=== PATIENT | male | born 1935 | race Caucasian/White ===

== ENCOUNTER → 2017-02-18 | Outpatient (CLI) | payer MEDICARE ==
[~2017-02-18] MED LIST: ADVAIR 250-501 EAC1 INH; ADVAIR 250-501 EACH IH; ALBUTEROL 0.5ML INH; ALBUTEROL MININEB INH; AMLODIPINE-BEN1 EAC5 PO; AMLODIPINE-BENA1 CAP PO; AMLODIPINE-OLM1 EAC3 PO; ASPIRIN EC81 M1 PO; B-COMPLEX 1000.4 MG; CLOPIDOGREL75 MG PO; COMBIVENT MININEB; FERROUS SULFAT325 MG PO; K-DUR20 ME1 PO; LASIX PO; LEVAQUIN750 MG PO; LIPITOR20 MG PO; NEXIUM PO; NITROGLYGERIN0.4 MG SL; OMNICEF300 MG PO; OXYGEN; PANTOPRAZOLE SO40 MG PO; SPIRIVA18 MCG INH; SPIRIVA18 MCG PO; VITAMIN C250 MG
== END | disposition home or self-care (01) ==
LOC: CECH 13:03
DX: R06.00 Dyspnea, unspecified (principal); J44.9 Chronic obstructive pulmonary disease, unspecified; I51.7 Cardiomegaly; I36.1 Nonrheumatic tricuspid (valve) insufficiency
CPT/HCPCS: 93306

== ENCOUNTER 2017-04-22 12:30 | Inpatient (IN) | payer MEDICARE ==
--- NOTE | ~2017-04-22 | DS ---
Unit #: [id number] #: [id number] Patient: DORA ALCIIA [id number] [place] [id number] [facility]. [place], [place] [address] [id number] I MR#: [id number] NAME: DORA ALICIA. ROOM: 547 Age: 82 Sex: M Admission Date: 04/22/2017 : 1935 Discharge Date: 04/25/2017 Attending Physician: Prakash Pacheco M.D. Primary Care Physician: Jasson Donnelly M.D. DISCHARGE SUMMARY FINAL DIAGNOSES 1. Acute on chronic congestive heart failure. 2. Acute on chronic hypoxemic respiratory failure. 3. 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 4. Pulmonary hypertension. 5. Chronic obstructive pulmonary disease. 6. Aortic regurgitation. CONSULTANTS Dr. Cummings. DIAGNOSTIC DATA IMAGING: CT chest. HOSPITAL COURSE MR. Alicia is an 82-year-old followed by me with chronic obstructive pulmonary disease. I am not certain what his stage is, but he is maintained on 3 liters of nasal cannula. He came to the office with increasing shortness of air and saturations were 83% on 3 liters, particularly with exertion. He had extremity edema and he had erythema of his legs. On x-ray, it looked like he had a right pleural effusion that was climbing up the wall of the chest. He was admitted and started on IV diuretics. I asked Misti Farfan and Zoila to see him. He was seen and started on increasing doses of diuretics. He received a little bit of IV steroids, but was kept to a minimum. He had an echocardiogram that was already known and this echocardiogram had revealed mild to moderate aortic regurgitation, elevated RVSP of 51, left atrium mildly dilated and some evidence of grade 1 diastolic dysfunction. He improved with diuresis and he had lower extremity Doppler because of the leg swelling, which revealed no definite DVT. He has gotten to the point where he is more or less not desaturating with walking. His last BMP was today. BUN was 32, which is higher than it was, but that is expected. Creatinine was 1.1, which is also higher than it was, but when he was admitted it was 0.8, so I think that is fine. Bicarb was 37. His white blood cell count was 6,000, hemoglobin 13, hematocrit 41 and platelets 147. He will likely need a right heart catheterization and I believe they are thinking of doing a left heart catheterization. DISCHARGE MEDICATIONS 1. Albuterol mini-nebs p.r.n. or albuterol inhaler q.i.d. p.r.n. 2. Advair 250/50 one puff b.i.d. 3. Omnicef 300 mg b.i.d. 4. Amlodipine/Benazepril 10/40 daily. 5. Lasix 40 mg p.o. b.i.d. Unit #: [id number] #: [id number] Patient: DORA ALICIA 6. Atorvastatin 20 mg p.o. daily. 7. Aspirin 81 mg p.o. daily. 8. Protonix 40 mg p.o. daily. 9. Potassium chloride 20 mEq p.o. daily. 10. Vitamin B complex. 11. He will continue his 3 liters nasal cannula at home. FOLLOWUP 1. He is to follow up with me in about two weeks. 2. He is to follow up with Dr. Cummings in two to four weeks. They will set up outpatient heart catheterization. Dictated by... Tc Leos/esa TD: 04/26/2017 07:05 JOB #: [id number] CC: Tc Leos M.D. DISCHARGE SUMMARY Page 1 of 1 X Prakash Pacheco MD DISCHARGE SUMMARY
--- NOTE | ~2017-04-22 | HP ---
Unit #: [id number] #: [id number] Patient: DORA ALICIA [id number] [address] [place], [place] [address] [id number] I MR#: [id number] NAME: DORA ALICIA. ROOM: 547 Age: 82 Sex: M Admission Date: 04/22/2017 : 1935 Attending Physician: Prakash Pacheco M.D. Primary Care Physician: Jasson Donnelly M.D. HISTORY AND PHYSICAL HISTORY OF PRESENT ILLNESS Mr. Alicia is an 82-year-old male with a history of COPD and prior asbestos exposure. He presented to the office with increasing shortness of air and desaturation on his 3 liters. He normally uses 3 liters nasal cannula. However, he has been noticing that saturations are dropping down in the 80s. He complains of bilateral leg swelling. He complains of maybe minimal cough and no chest pain. He has a history of COPD and PFTs done 07/23/2016 revealed an FEV1 of 0.92 39% of predicted, FVC 0.95 31% of predicted, ratio of the two is 96% with a 16% improvement post bronchodilator in the FVC. Now these PFTs are restrictive. He had a recent echo with some suggestion of pulmonary hypertension. Past medical history is otherwise significant for pleural effusions. He actually had a thoracentesis back in May of 2013 with protein of 2.9, LDH of 74, 62% lymphocytes. At that time, cytology was negative for malignancy. OTHER PAST MEDICAL HISTORY Significant for: 1. Hyperlipidemia. 2. Hypertension. HOME MEDICATIONS Included: 1. Aspirin 81 mg p.o. daily. 2. Advair 250/50 one puff b.i.d. 3. Atorvastatin 20 mg p.o. daily. 4. Fluad which actually was his flu vaccine given back in September. 5. Amlodipine/benazepril 10/40 daily. 6. Proventil MDI q.i.d. 7. Combivent p.r.n. ALLERGIES Penicillin. SOCIAL HISTORY He did previously smoke but he quit smoking 8-10 years ago. FAMILY HISTORY Significant for two sisters and maybe two brothers with COPD. REVIEW OF SYSTEMS He has sinus issues. He has leg swelling, however, he was unaware of any weight gain or weight loss. History of cataracts. History of sinus Unit #: [id number] #: [id number] Patient: DORA ALICIA congestion. No changes in bowel movements. No gastroesophageal reflux disease or nausea. No history of kidney issues. No joint pains, no skin rashes. No coping problems. He has had some problems with sexual function. History of burning in his feet and numbness in his feet. He does occasionally snore but not too much. All other systems are negative except as mentioned. PHYSICAL EXAMINATION VITAL SIGNS: Temperature 98.6, pulse 77, respirations 16, blood pressure 127/55, saturation was running 96% on 3 liters. GENERAL: He presents as an older male in no acute distress. NECK: Without adenopathy. It is a bit thick. LUNGS: Evaluation of his lungs reveals his breathing is not labored. He has inspiratory crackles in the bases bilaterally. HEART: Regular. ABDOMEN: Soft, nontender. Bowel sounds are present. EXTREMITIES: With 2+ edema. NEUROLOGIC: He is awake and alert. DIAGNOSTIC STUDIES LABORATORY: Serum chemistries significant for BUN 13, creatinine 0.8, bicarb was elevated at 33. BNP was only 60. Procalcitonin was less than 0.05. White blood cell count was 6.7, hemoglobin 13.3, hematocrit 42.1, platelets 149,000. IMAGING: Chest x-ray in my office revealed what looked like a right pleural effusion. It seemed to be coming up the chest wall. CAT scan of the lung was done and viewed by me. He does indeed have pleural thickening/pleural effusion but I thought it was actually bilaterally. Not only that, I thought that the amount of fluid component was very minimal. The radiologist thought that the fluid was probably chronic and multiloculated and the size has not really changed since July 2013. I thought there was a little bit of calcification in the left pleura. He had some increased interstitial markings in the upper molina. These increased interstitial markings may actually be worse. CARDIOVASCULAR: Echo was done on 02/18/2017. In my opinion, significant for impaired relaxation. Grade 1 diastolic dysfunction. Ejection fraction 55% to 60%. Mitral valve trace regurgitation. Aortic valve rhbi-dr-zxmspbdu aortic regurgitation, no stenosis. RVSP was 51. Left atrium mildly dilated. Right atrium mildly enlarged. Right ventricle suboptimal visualization but mildly enlarged. IMPRESSION 1. Usnll-io-hyxubkm diastolic congestive heart failure. 2. Eyfkx-va-ybsyahd hypoxemic respiratory failure. 3. Bilateral pleural effusion/thickening probably due to asbestosis. 4. Pulmonary hypertension which may be in part group 2. 5. Chronic obstructive pulmonary disease. PLAN 1. I would like to diurese him with IV Lasix. 2. I would like to give him brief IV Solu-Medrol. 3. I started him on IV antibiotic but we will back off quickly. 4. I think he would benefit from a right heart catheterization. Unit #: [id number] #: [id number] Patient: DORA ALICIA Dictated by Tc Leos/yovany TD: 04/23/2017 19:48 JOB #: [id number] HISTORY AND PHYSICAL Page 1 of 1 X Prakash Pacheco MD X HISTORY AND PHYSICAL
--- NOTE | ~2017-04-22 | CT57 ---
[facility] A Service of [facility] RADIOLOGY TEXT RESULTS PATIENT: DORA VENEGAS LOCATION: [facility] 54-01 : 37 UNIT #: [id number] AGE: [address]: Prakash Pacheco MD SEX: M ORDER DR: [id number] [facility] [address] [facility]. [place], [place] [address] [id number] I MR#: [id number] Acc #: [id number] NAME: DORA VENEGAS. : 1935 SEX: M STUDY DATE/TIME: 04/22/2017 17:00 UNIT: [facility] ROOM: [facility] STUDY DESCRIPTION: CT Chest Wo Cont Attending Physician: Prakash Pacheco M.D. Ordering Physician: Prakash Pacheco M.D. Primary Care Physician: Jasson Donnelly M.D. MEDICAL IMAGING REPORT This report is preliminary unless electronic signature is present EXAM Chest CT without contrast. HISTORY Shortness of breath and dyspnea with respiratory failure over the last 2 days. Chronic emphysema. Evaluate right pleural effusion. COMPARISON Comparison from 08/18/13. TECHNIQUE Axial images were obtained without contrast and evaluated at lung and mediastinal windows. This CT exam was performed with one or more of the following radiation dose reduction techniques: automatic exposure control, adjustment of mA and/or kV according to patient size, and iterative reconstruction. FINDINGS Chest images at mediastinal window show no enlarged mediastinal or hilar lymph nodes. There is a small right pleural effusion. There appear be some strands of tissue within the fluid suggesting it is chronic and probably multiloculated. The size of the effusion is unchanged from a previous scan from 08/18/13. There is a trace pleural effusion on the left that is new since the previous scan. No pericardial fluid is seen. Lung window imaging shows mildly prominent interstitial markings in the upper lung molina. There is diffuse pleural thickening in the right hemithorax. Interstitial markings have increased since the previous scan in 2012. There is also chronic volume loss and bronchial wall thickening in both lower lobes, right worse than left. This shows slight worsening since 2012. [facility] A Service of [facility] RADIOLOGY TEXT RESULTS PATIENT: DORA VENEGAS LOCATION: [facility] [id number] : 37 UNIT #: [id number] AGE: [address]: Prakash Pacheco MD SEX: M ORDER DR: IMPRESSION 1. Chronic right pleural effusion unchanged in volume since the previous examination. There is evidence of diffuse pleural thickening and fibrosis as well in the right hemithorax showing slight worsening since the 2013 study. 2. Trace left pleural effusion that is new. 3. Chronic volume loss of both lung bases right worse than left. Right basilar interstitial infiltrates are slightly worse since the previous scan. No evidence of adenopathy or pericardial fluid. No definite etiology for acute onset of respiratory failure and shortness of breath identified. Dictated by... Carlos Gutierrez M.D. THIS IS AN ELECTRONICALLY VERIFIED REPORT Carlos Gutierrez M.D. at 04/23/2017 4:29 PM AQUILINO/rossana TD: 04/22/2017 19:50 JOB #: [id number] MEDICAL IMAGING REPORT Page 1 of 1 COPY
--- NOTE | ~2017-04-22 | CR63 ---
[facility] A Service of [facility] RADIOLOGY TEXT RESULTS PATIENT: DORA VENEGAS LOCATION: [place] [address]- : 37 UNIT #: [id number] AGE: [address]: Prakash Pacheco MD SEX: M ORDER DR: [id number] [facility] [address] [facility]. [place], [place] [address] [id number] I MR#: [id number] Acc #: [id number] NAME: DORA VENEGAS. : 1935 SEX: M STUDY DATE/TIME: 04/23/2017 12:25 UNIT: [facility] ROOM: [facility] STUDY DESCRIPTION: CR Chest 2 View Attending Physician: Prakash Pacheco M.D. Ordering Physician: Lucius Cummings M.D. Primary Care Physician: Jasson Donnelly M.D. MEDICAL IMAGING REPORT This report is preliminary unless electronic signature is present EXAM Two-view chest 04/23/2017 HISTORY Shortness of air x 1 week. Shortness of air and congestion. Previous smoker 10 year duration. TECHNIQUE PA and lateral radiographs of the chest are presented. COMPARISON STUDIES CT examination 04/22/2017. Chest radiograph 09/24/2015. FINDINGS Multilevel degenerative change in the spine. Multilevel bridging thoracic spine osteophytes and calcifications along the anterior longitudinal ligament. There is no acute-appearing bony abnormality. There is a stable mild cardiac enlargement. Mild pulmonary vascular prominence. Correlate with any clinical indications of vascular congestion. There are some linear densities at the bilateral lung bases, favored to reflect components of atelectasis and scarring. There is no dense airspace disease. Chronic pleural thickening versus loculated effusion, right hemithorax. No change from August 2015 chest radiograph. There is no pneumothorax. Pulmonary parenchymal findings do not appear significantly changed from CT examination 04/22/2017. Dictated by... Stewart Kate M.D. THIS IS AN ELECTRONICALLY VERIFIED REPORT Stewart Kate M.D. at 04/27/2017 4:57 PM [facility] A Service of [facility] RADIOLOGY TEXT RESULTS PATIENT: DORA VENEGAS LOCATION: [facility] 547-01 : 37 UNIT #: [id number] AGE: [address]: Prakash Pacheco MD SEX: M ORDER DR: JANN/wyatt TD: 04/23/2017 16:22 JOB #: [id number] MEDICAL IMAGING REPORT Page 1 of 1 COPY
--- NOTE | ~2017-04-22 | CO ---
Unit #: [id number] #: [id number] Patient: DORA VENEGAS [id number] [address] [place], [place] [address] [id number] I MR#: [id number] NAME: DORA VENEGAS ROOM: 547 Age: 82 Sex: M Admission Date: 04/22/2017 : 1935 Attending Physician: Prakash Pacheco M.D. Primary Care Physician: Jasson Donnelly M.D. Consultation Date: 04/23/2017 CONSULTATION REPORT REASON FOR CONSULTATION Diastolic CHF. 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 He had an echo in January of 2017, which showed an EF of 55% to 60%, mild LVH, grade 1 diastolic dysfunction, mild TR and RVSP of 51 mmHg. Additional past medical history includes chronic diastolic CHF, chronic hypoxic respiratory failure requiring 3 L nasal cannula, COPD, hypertension, hyperlipidemia, CVA 35 years ago, no residual after a right carotid endarterectomy. The patient is a reformed smoker. He smoked for approximately 60+ years, approximately two and a half packs per day but quit ten years ago. The patient reports that he has been on oxygen for the past seven to eight years. The patient reports that for the past one to two weeks that he has been having progressive shortness of air and bilateral lower extremity swelling. He feels very winded with activity. He has noted decline in his activity as well. He denies any chest pain. He also denies any history of myocardial infarction or cardiac catheterization. The patient does note that he recently had a 2D echocardiogram and follows with Dr. Pacheco. The patient's EKG is abnormal and does show Q waves in the inferior leads. His laboratory results have been relatively unremarkable. He did have a CT scan of his chest which showed a chronic right pleural effusion that is unchanged from previous examination. He does have evidence of diffuse pleural thickening and fibrosis in the right hemithorax showing slight worsening since 2012. He did have a new left pleural effusion. Chronic volume loss of both lung bases, right worse than left. No evidence of adenopathy or pericardial fluid. PAST MEDICAL HISTORY 1. 2D echocardiogram from February 18, 2017, shows an EF of 55% to 60%, mild LVH, grade 1 diastolic dysfunction, mild TR with an RVSP of 51 mmHg. 2. Chronic diastolic CHF. 3. Chronic hypoxic respiratory failure requiring 2 to 3 L nasal cannula. 4. COPD. 5. Hypertension. 6. Hyperlipidemia. 7. 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 8. Coronary artery disease, status post carotid endarterectomy 35 years ago. 9. GERD. 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 Unit #: [id number] #: [id number] Patient: DORA VENEGAS PAST SURGICAL HISTORY Right carotid endarterectomy. ALLERGIES Penicillin. HOME MEDICATIONS 1. Lipitor 20 mg p.o. daily. 2. Vitamin B12, one tab p.o. daily. 3. Advair 250/50, one puff inhalation b.i.d. 4. Amlodipine/benazepril 50/20 mg, one tab p.o. b.i.d. 5. Proventil two puffs inhalation four times daily. 6. Aspirin 81 mg p.o. daily. 7. Combivent two puffs inhalation four times daily p.r.n. shortness of breath. 8. Protonix 40 mg p.o. daily. 9. Amlodipine/olmesartan 10/40, one tab p.o. daily. FAMILY HISTORY Denies any cardiovascular history. The patient does have a son who from oral cancer. SOCIAL HISTORY The patient is a reformed smoker. He started smoking at the age of 14 or 15 and smoked until the age of 72. He smoked approximately two and a half packs of cigarettes per day. The patient was placed on chronic oxygen approximately seven to eight years ago, per family report. He socially drinks alcohol, denies any illicit drug use. He lives with his who is a diabetic but otherwise is in relatively good health. REVIEW OF SYSTEMS A ten point review of systems has been done and is otherwise negative unless indicated in the HPI. Please note - patient has denied any events of chest pain. He only endorses shortness of breath and bilateral lower extremity swelling. PHYSICAL EXAMINATION GENERAL: The patient is awake and alert, in no acute distress. VITAL SIGNS: Temperature 98, heart rate 77, respirations 21, blood pressure 121/61. He is oxygenating 96% on 3 L nasal cannula. HEENT: Head is atraumatic, normocephalic. Pupils are equal, round and reactive. Extraocular movements are intact. No discharge from ears or nares. NECK: Supple. Trachea is midline. No lymphadenopathy or thyromegaly is appreciated. Positive JVD. LUNGS: Diminished bilaterally with crackles in the right lung. HEART: Regular rate and rhythm. No murmurs, rubs or gallops appreciated. ABDOMEN: Soft, nontender, distended. Bowel sounds are positive in all four quadrants. No hepatosplenomegaly is appreciated. SKIN: Appears to be warm, dry and intact without any unusual rashes or lesions. EXTREMITIES: No clubbing or cyanosis. The patient has +2 bilateral lower extremity edema. NEUROLOGICAL: The patient is alert and oriented x4. He is somewhat forgetful but he is pleasant and conversant. Cranial nerves II-XII appear to be intact. Unit #: [id number] #: [id number] Patient: DORA VENEGAS DIAGNOSTIC STUDIES CARDIOVASCULAR: EKG shows normal sinus rhythm with Q waves in the inferior leads. LABORATORY: White blood cells 6.7, hemoglobin 13.3, hematocrit 42.1, platelets 149, sodium 143, potassium 4.4, chloride 104, CO2 33, BUN 13, creatinine 0.8, glucose 97. IMAGING: CT of the chest shows chronic right pleural effusion and new left pleural effusion. ASSESSMENT 1. Severe to moderate pulmonary hypertension with right systolic ventricular pressure of 51 mmHg. 2. Severe chronic obstructive pulmonary disease. 3. Acute on chronic hypoxic respiratory failure. 4. 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 5. Obstructive sleep apnea. 6. History of carotid disease, status post right carotid endarterectomy. 7. Cerebrovascular accident 35 years ago. 8. Hypertension. 9. Hyperlipidemia. 10. Obesity with a body mass index greater than 30. PLAN 1. At this time, will start the patient on Lasix 40 mg IV b.i.d. Will plan to check a BP, mag, TSH and lipid panel in the morning. Trend troponin q.6 hours x2. A bilateral lower extremity venous Doppler has been ordered today regarding patient's lower extremity swelling. Will start the patient on strict I's and O's with 1800 mL fluid restriction and daily weights. Will obtain an EKG now. Also, will check a chest x-ray PA and lateral today. 2. At this time, will continue to diurese the patient. The patient may need a cardiac catheterization in the future, possibly on Wednesday. Dictated by... Roxie Centeno A.P.R.N. for Lucius Cummings M.D. AM/jeffrey TD: 04/23/2017 13:07 JOB #: [id number] CONSULTATION REPORT Page 1 of 1 X Roxie Centeno APRN X CONSULTATION REPORT
--- NOTE | ~2017-04-22 | CR63 ---
[facility] A Service of [facility] RADIOLOGY TEXT RESULTS PATIENT: DORA VENEGAS LOCATION: [place] [address] : 37 UNIT #: [id number] AGE: [address]: Prakash Pacheco MD SEX: M ORDER DR: [id number] [facility] [address]. [place], [place] [address] [id number] I MR#: [id number] Acc #: [id number] NAME: DORA VENEGAS : 1935 SEX: M STUDY DATE/TIME: 04/25/2017 8:51 UNIT: [facility] ROOM: [facility] STUDY DESCRIPTION: CR Chest 2 View Attending Physician: Prakash Pacheco M.D. Ordering Physician: Avani Clark M.D. Primary Care Physician: Jasson Donnelly M.D. MEDICAL IMAGING REPORT This report is preliminary unless electronic signature is present EXAM PA and lateral chest INDICATIONS Shortness of breath for a week. COMPARISON 04/23/2017 FINDINGS The patient is rotated. There is a new density in the right base which may represent atelectasis or infiltrate. However it may be artifactual due to differences in patient positioning. No corresponding abnormality is seen on the lateral view. Heart size stable. Degenerative changes thoracic spine. IMPRESSION Questionable new atelectasis or infiltrate in the right base although this could be due to artifact from differences in patient rotation and positioning. Dictated by... Francisco Hilario M.D. THIS IS AN ELECTRONICALLY VERIFIED REPORT Francisco Hilario M.D. at 04/26/2017 12:34 PM Monica TD: 04/25/2017 10:41 JOB #: [id number] MEDICAL IMAGING REPORT Page 1 of 1 COPY
--- NOTE | ~2017-04-22 | EKG ---
PATIENT: DORA VENEGAS UNIT #: [id number] Ventricular Rate: 74 BPM Atrial Rate: 74 BPM P-R Interval: 132 ms QRS Duration: 92 ms Q-T Interval: 364 ms QTC Calculation(Bezet): 404 ms P [place]: 73 degrees Calculated R [place]: 30 degrees Calculated T [place]: 116 degrees Diagnosis Line: Normal sinus rhythm Diagnosis Line: Nonspecific T wave abnormality Diagnosis Line: Abnormal ECG Diagnosis Line: When compared with ECG of 21-MAR-2012 16:59, Diagnosis Line: Nonspecific T wave abnormality no longer evident Diagnosis Line: in Inferior leads Diagnosis Line: Confirmed by ALESSANDRO TAYLOR MD ([id number]) on Diagnosis Line: 04/27/2017 5:14:04 PM INTERPRETING MD: RADHA
--- NOTE | ~2017-04-22 | US84 ---
[id number] [facility] [address] [facility]. [place], [place] [address] [id number] I MR#: [id number] Acc #: [id number] NAME: DORA VENEGAS : 1935 SEX: M STUDY DATE/TIME: 04/23/2017 12:40 UNIT: C5B ROOM: 547 STUDY DESCRIPTION: US LE Veins Complete Price Stdy Attending Physician: Prakash Pacheco M.D. Ordering Physician: Roxie Centeno A.P.R.N. Primary Care Physician: Jasson Donnelly M.D. MEDICAL IMAGING REPORT This report is preliminary unless electronic signature is present EXAM Bilateral lower extremity venous duplex ultrasound, 04/23/17. HISTORY 82-year-old male with bilateral lower extremity edema and swelling for 1 week. COMPARISON None. FINDINGS Real-time becerra-scale, color Doppler, and spectral Doppler analysis of the bilateral lower extremity deep venous systems demonstrates normal venous waveforms with normal compressibility and augmentation throughout. No evidence of bilateral lower extremity deep venous thrombosis. IMPRESSION Negative for bilateral lower extremity DVT. Dictated by... José Denis M.D. THIS IS AN ELECTRONICALLY VERIFIED REPORT José Denis M.D. at 04/23/2017 4:26 PM KAREN/rossana TD: 04/23/2017 15:27 JOB #: [id number] MEDICAL IMAGING REPORT Page 1 of 1 COPY
[~2017-04-22 12:30] MED LIST changes: -ADVAIR 250-501 EAC1 INH; -ALBUTEROL 0.5ML INH; -AMLODIPINE-BEN1 EAC5 PO; -AMLODIPINE-OLM1 EAC3 PO; -ASPIRIN EC81 M1 PO; -B-COMPLEX 1000.4 MG; -CLOPIDOGREL75 MG PO; -COMBIVENT MININEB; -FERROUS SULFAT325 MG PO; -K-DUR20 ME1 PO; -LASIX PO; -LIPITOR20 MG PO; -NITROGLYGERIN0.4 MG SL; -OMNICEF300 MG PO; -OXYGEN; -PANTOPRAZOLE SO40 MG PO
[2017-04-22 14:52] LABS: HEMATOCRIT 42.1 % (38.0-50.0); HEMOGLOBIN 13.3 gm/dL (13.0-16.0); MEAN CELL VOLUME 92.9 FL (83-96); MEAN CORPUSCULAR HEMOGLOBIN 29.3 PG (28-34); MEAN CORPUSCULAR HGB CONC 31.6 g/dL (30-36); RED BLOOD COUNT 4.52 X10e (3.90-5.60); RED CELL DISTRIBUTION WIDTH 14.3 % (11.0-15.5); WHITE BLOOD COUNT 6.7 X10e3 (4.0-10.5)
[2017-04-22 15:09] LABS: PARTIAL THROMBOPLASTIN TIME 27.1 SECONDS (23.5-31.3); PROTHROMBIN TIME (PATIENT) 10.7 SECONDS (9.6-11.5)
[2017-04-22] MEDS ORDERED: AMLODIPINE-OLM1 EAC3 PO (15:14)
[2017-04-22 15:17] LABS: ALBUMIN SERUM 4.3 g/dL (3.5-5.0); BUN/CREATININE RATIO 16.25; CREATININE SERUM 0.8 mg/dL (0.6-1.4); GLOM FILT RATE Estimated 84.4 mL/min (>60); POTASSIUM 4.4 mmol/L (3.5-5.1)
[2017-04-24 07:03] LABS: BUN/CREATININE RATIO 27.77; CALCIUM SERUM 8.7 mg/dL (8.4-10.2); CREATININE SERUM 0.9 mg/dL (0.6-1.4); GLOM FILT RATE Estimated 80.4 mL/min (>60); POTASSIUM 4.7 mmol/L (3.5-5.1)
[2017-04-25 05:55] LABS: HEMATOCRIT 41.8 % (38.0-50.0); HEMOGLOBIN 13.3 gm/dL (13.0-16.0); MEAN CELL VOLUME 92.3 FL (83-96); MEAN CORPUSCULAR HEMOGLOBIN 29.3 PG (28-34); MEAN CORPUSCULAR HGB CONC 31.8 g/dL (30-36); MEAN PLATELET VOLUME 10.3 FL (6.5-11.5); RED BLOOD COUNT 4.53 X10e (3.90-5.60)
[2017-04-25 06:54] LABS: BUN/CREATININE RATIO 29.09; CREATININE SERUM 1.1 mg/dL (0.6-1.4); GLOM FILT RATE Estimated 63.1 mL/min (>60); POTASSIUM 4.5 mmol/L (3.5-5.1)
[2017-04-25] MEDS ORDERED: OMNICEF300 MG PO (14:17)
== END 2017-04-25 18:48 | disposition home health service (06) | DRG 291 ==
LOC: C5B 12:30 → UNDOADMIN 12:30 → C5B 12:40
PROVIDERS: Internal Medicine Pulmonary Disease; Nurse Practitioner
DX: I50.33 Acute on chronic diastolic (congestive) heart failure (principal); J96.21 Acute and chronic respiratory failure with hypoxia; J90 Pleural effusion, not elsewhere classified; I27.2 Other secondary pulmonary hypertension; J44.9 Chronic obstructive pulmonary disease, unspecified; E78.5 Hyperlipidemia, unspecified; I25.10 Atherosclerotic heart disease of native coronary artery without angina pectoris; Z86.73 Personal history of transient ischemic attack (TIA), and cerebral infarction without residual deficits; Z87.891 Personal history of nicotine dependence; K21.9 Gastro-esophageal reflux disease without esophagitis; Z88.0 Allergy status to penicillin; Z79.82 Long term (current) use of aspirin; G47.33 Obstructive sleep apnea (adult) (pediatric); I25.2 Old myocardial infarction; E66.9 Obesity, unspecified; Z68.30 Body mass index [BMI] 30.0-30.9, adult; I08.2 Rheumatic disorders of both aortic and tricuspid valves; J92.0 Pleural plaque with presence of asbestos
CPT/HCPCS: 71020; 71250; 80048; 80053; 80061; 82308; 83735; 83880; 84443; 84484; 85027; 85610; 85730; 87070; 87205; 93005; 93970; 94640; 94664; 94760; 94762; J0696; J1940; J2920

== ENCOUNTER 2017-05-11 08:05 | Observation (INO) | payer MEDICARE ==
--- NOTE | ~2017-05-11 | EKG ---
PATIENT: DORA VENEGAS UNIT #: [id number] Ventricular Rate: 61 BPM Atrial Rate: 61 BPM P-R Interval: 118 ms QRS Duration: 84 ms Q-T Interval: 406 ms QTC Calculation(Bezet): 408 ms P [place]: 29 degrees Calculated R [place]: 27 degrees Calculated T [place]: 22 degrees Diagnosis Line: Sinus rhythm with Premature atrial complexes Diagnosis Line: Otherwise normal ECG Diagnosis Line: When compared with ECG of 11-MAY-2017 09:20, Diagnosis Line: Premature atrial complexes are now Present Diagnosis Line: Confirmed by LEN MOISE MD ([id number]) on 05/12/2017 Diagnosis Line: 7:34:35 AM INTERPRETING MD: JOSE MARIA WYLIE
--- NOTE | ~2017-05-11 | DS ---
Unit #: [id number] #: [id number] Patient: DORA VENEGAS [id number] [address] [address] [id number] MR#: [id number] NAME: DORA VENEGAS. ROOM: 56 Age: 82 Sex: M Admission Date: 05/11/2017 : 1935 Discharge Date: 05/12/2017 Attending Physician: Lucius Cummings M.D. Referring Physician: Lucius Cummings M.D. Primary Care Physician: Jasson Donnelly M.D. DISCHARGE SUMMARY DISCHARGE DIAGNOSES 1. Dyspnea, multifactorial. 2. Status post cardiac catheterization 05/11/[address] Cummings that revealed the following results: a. Left ventriculography not done because of renal insufficiency. b. Left ventricular end diastolic pressure 15 millimeters of mercury. c. Left main normal. d. Circumflex artery normal. e. Left anterior descending artery revealed 80% to 90% stenosis mid vessel. f. Right coronary artery with ostial stenosis of 70% to 75%, mid vessel 50%. 3. Status post percutaneous coronary intervention with drug-eluting stent to the mid left anterior descending 05/11/2017. 4. Chronic diastolic heart failure with preserved ejection fraction of 55% to 60%. 5. Chronic hypoxic respiratory failure, on home oxygen. 6. Chronic obstructive pulmonary disease. 7. Hypertension. 8. Hyperlipidemia. 9. Chronic kidney disease stage 3. 10. Pulmonary hypertension. DISCHARGE MEDICATIONS 1. Albuterol 2 puffs q.i.d. 2. Combivent Mini-Neb p.r.n. 3. Advair Diskus 250/50 mcg 1 inhalation b.i.d. 4. Atorvastatin 80 mg q.h.s. 5. Amlodipine/benazepril 10/40 mg 1 tablet daily. 6. Oxygen at 3 liters nasal cannula. 7. Furosemide 40 mg b.i.d. 8. Ferrous sulfate 1 tablet daily. 9. Vitamin B complex plus C 1 tablet daily. 10. Aspirin 81 mg daily. 11. Plavix 75 mg daily. 12. Protonix 40 mg daily. 13. Potassium chloride 20 mEq daily. 14. Nitroglycerin 0.4 mg sublingual q.5 minutes x3 p.r.n. chest pain. HOSPITAL COURSE This is an 82-year-old white male who was recently discharged from this facility on 04/25/2017 where he was admitted with acute on chronic Unit #: [id number] #: [id number] Patient: DORA VENEGAS diastolic heart failure. He also had acute on chronic hypoxic respiratory failure. He is known to have COPD and pulmonary hypertension. His echocardiogram in January found him to have normal ejection fraction of 55% to 60% with grade 1 diastolic dysfunction. The patient had an abnormal EKG with Q waves noted in the inferior leads. It was felt the patient's dyspnea may have a cardiac origin; therefore, he was scheduled for an elective cardiac catheterization to evaluate his coronary anatomy. LV-gram was not done because of renal insufficiency. His admitting creatinine was 1.7. He was hydrated with IV fluids prior to the procedure and afterward. He underwent cardiac catheterization where he was found to have LAD mid vessel stenosis of 80% to 90%. The right coronary artery had ostial stenosis of 70% to 75%, mid vessel stenosis of 50%. He had elevated LVEDP of 15 mmHg. The circumflex was normal. It was felt the patient could undergo PCI to the LAD lesion with minimal dye use to prevent contrast-induced nephropathy. There was successful deployment of a 4 x 15 mm XIENCE drug-eluting stent into the 80% to 90% mid LAD stenosis, reducing the stenosis to 0%. It was postdilated up to 4.5 mm. No intervention was done on the 70% right coronary artery ostial lesion. Contrast used was only 55 mL. The following day the patient's creatinine had improved to 1.4. MB index was 2.2. He had no changes on his electrocardiogram. He was allowed to ambulate in the room wearing oxygen. He reported no recurrent chest pain or shortness of breath. His right femoral groin site is without hematoma or bruising. There are good distal pulses. He is stable for discharge today. ASSESSMENT VITAL SIGNS: Blood pressure 120/50, heart rate 81, temperature 97.6. CHEST: Diminished breath sounds both lungs. ABDOMEN: Soft, nontender with bowel sounds present. HEART: S1, S2. Regular rate and rhythm. No murmurs. No rubs. No clicks. EXTREMITIES: Pedal pulses are palpable without leg edema. Right groin site without hematoma or bruising. DIAGNOSTIC STUDIES LABORATORY STUDIES: Glucose 103, BUN 27, creatinine 1.4, sodium 139, potassium 4.8. CK total 209, MB 4.6, MB index 2.2. Cholesterol 92, triglycerides 86, LDL 43, HDL 32. White count 5.5, hemoglobin 13.4, hematocrit 40.5, platelet count 134. CARDIOVASCULAR: Electrocardiogram shows normal sinus rhythm with a rate of 67 beats per minute; otherwise, normal. DISCHARGE INSTRUCTIONS 1. The patient will be discharged home today. 2. Follow up with Dr. Cummings on 06/14/2017 at 2:30 p.m. 3. Follow up with PCP in 2-3 weeks. 4. Follow up with Dr. Pacheco as needed. 5. The patient has been advised to undergo cardiac rehab. They saw the patient, and the patient wants to think about the program. He has been encouraged to participate. 6. The patient will be discharged home on dual antiplatelet therapy with aspirin and Plavix for at least one year. Prescriptions have been provided. 7. The cause of dyspnea is multifactorial, including coronary artery disease. If he is to have recurrent symptoms, will consider PCI of the right coronary artery in the future. For now, will continue Unit #: [id number] #: [id number] Patient: DORA VENEGAS medical management. 8. The patient will be discharged home on MICHAEL inhibitor and high-intensity statin with Lipitor. No beta-monique because of lung disease. Dictated by... Willie Jean A.P.R.N. for Tc Lomas/robby TD: 05/13/2017 13:43 JOB #: [id number] DISCHARGE SUMMARY Page 1 of 1 X Willie Jean APRN X DISCHARGE SUMMARY
--- NOTE | ~2017-05-11 | EKG ---
PATIENT: DORA VENEGAS UNIT #: [id number] Ventricular Rate: 67 BPM Atrial Rate: 67 BPM P-R Interval: 146 ms QRS Duration: 78 ms Q-T Interval: 392 ms QTC Calculation(Bezet): 414 ms P [place]: 32 degrees Calculated R [place]: 28 degrees Calculated T [place]: 19 degrees Diagnosis Line: Normal sinus rhythm with sinus arrhythmia Diagnosis Line: Normal ECG Diagnosis Line: When compared with ECG of 11-MAY-2017 13:40, Diagnosis Line: (unconfirmed) Diagnosis Line: Premature atrial complexes are no longer Present Diagnosis Line: Confirmed by LEN MOISE MD ([id number]) on 05/12/2017 Diagnosis Line: 7:46:25 AM INTERPRETING MD: JOSE MARIA WYLIE
--- NOTE | ~2017-05-11 | EKG ---
PATIENT: DORA VENEGAS UNIT #: [id number] Ventricular Rate: 63 BPM Atrial Rate: 63 BPM P-R Interval: 126 ms QRS Duration: 90 ms Q-T Interval: 400 ms QTC Calculation(Bezet): 409 ms P [place]: 21 degrees Calculated R [place]: 23 degrees Calculated T [place]: 37 degrees Diagnosis Line: Sinus rhythm with marked sinus arrhythmia Diagnosis Line: Otherwise normal ECG Diagnosis Line: When compared with ECG of 23-APR-2017 10:01, Diagnosis Line: Nonspecific T wave abnormality no longer evident Diagnosis Line: in Lateral leads Diagnosis Line: Confirmed by LEN MOISE MD ([id number]) on 05/12/2017 Diagnosis Line: 7:26:32 AM INTERPRETING MD: JOSE MARIA WYLIE
[~2017-05-11 08:05] MED LIST changes: +AMLODIPINE-OLM1 EAC3 PO; +OMNICEF300 MG PO
[2017-05-11 08:39] LABS: HEMATOCRIT 45.1 % (38.0-50.0); HEMOGLOBIN 14.5 gm/dL (13.0-16.0); MEAN CELL VOLUME 90.7 FL (83-96); MEAN CORPUSCULAR HEMOGLOBIN 29.2 PG (28-34); MEAN CORPUSCULAR HGB CONC 32.2 g/dL (30-36); MEAN PLATELET VOLUME 9.8 FL (6.5-11.5); RED BLOOD COUNT 4.97 X10e (3.90-5.60); RED CELL DISTRIBUTION WIDTH 13.9 % (11.0-15.5); WHITE BLOOD COUNT 5.6 X10e3 (4.0-10.5)
[2017-05-11] MEDS ORDERED: OXYGEN (08:42)
[2017-05-11] MEDS ORDERED: FERROUS SULFAT325 MG PO (08:42)
[2017-05-11 08:55] LABS: PARTIAL THROMBOPLASTIN TIME 25.4 SECONDS (23.5-31.3); PROTHROMBIN TIME (PATIENT) 10.7 SECONDS (9.6-11.5)
[2017-05-11 09:05] LABS: BUN/CREATININE RATIO 21.76; CALCIUM SERUM 8.9 mg/dL (8.4-10.2); CREATININE SERUM 1.7 mg/dL (0.6-1.4); GLOM FILT RATE Estimated 37.3 mL/min (>60); POTASSIUM 4.4 mmol/L (3.5-5.1)
[2017-05-11] MEDS ORDERED: ADVAIR 250-501 EAC1 INH (10:55)
[2017-05-11] MEDS ORDERED: ALBUTEROL 0.5ML INH (10:55)
[2017-05-11] MEDS ORDERED: LIPITOR20 MG PO (10:55)
[2017-05-11] MEDS ORDERED: B-COMPLEX 1000.4 MG (10:55)
[2017-05-11] MEDS ORDERED: ASPIRIN EC81 M1 PO (10:55)
[2017-05-11] MEDS ORDERED: AMLODIPINE-BEN1 EAC5 PO (10:55)
[2017-05-11] MEDS ORDERED: COMBIVENT MININEB (10:57)
[2017-05-11] MEDS ORDERED: LASIX PO (14:19)
[2017-05-11] MEDS ORDERED: K-DUR20 ME1 PO (14:19)
[2017-05-11] MEDS ORDERED: PANTOPRAZOLE SO40 MG PO (15:13)
[2017-05-11 20:57] LABS: ANGIO %MB 2.4 % (0.0-4.0); ANGIO MB 2.5 ng/ml
[2017-05-12 05:51] LABS: BASOPHIL% 0.4 % (0-2.5); EOSINOPHIL# 0.1 X10e3 (0-0.7); EOSINOPHIL% 2.2 % (0.0-7.0); HEMATOCRIT 40.5 % (38.0-50.0); HEMOGLOBIN 13.4 gm/dL (13.0-16.0); LYMPHOCYTE# 0.9 X10e3 (1.0-3.5); LYMPHOCYTE% 16.3 % (17.0-45.0); MEAN CELL VOLUME 89.6 FL (83-96); MEAN CORPUSCULAR HEMOGLOBIN 29.7 PG (28-34); MEAN CORPUSCULAR HGB CONC 33.1 g/dL (30-36); MEAN PLATELET VOLUME 10.1 FL (6.5-11.5); MONOCYTE# 1.2 X10e3 (0-1.0); MONOCYTE% 21.5 % (3.0-12.0); NEUTROPHIL# 3.3 X10e3 (1.5-7.1); NEUTROPHIL% 59.6 % (40-75); PLATELET COUNT 134 X10e3 (140-420); RED BLOOD COUNT 4.52 X10e (3.90-5.60); RED CELL DISTRIBUTION WIDTH 13.6 % (11.0-15.5); WHITE BLOOD COUNT 5.5 X10e3 (4.0-10.5)
[2017-05-12 05:52] LABS: DIFF IND YES
[2017-05-12 06:28] LABS: BUN/CREATININE RATIO 19.28; CALCIUM SERUM 8.6 mg/dL (8.4-10.2); CREATININE SERUM 1.4 mg/dL (0.6-1.4); GLOM FILT RATE Estimated 47.1 mL/min (>60); POTASSIUM 4.8 mmol/L (3.5-5.1)
[2017-05-12 06:40] LABS: CHOLESTEROL 92 mg/dL (0-200); HDL CHOLESTEROL 32 mg/dL (29-75); LDL CHOLESTEROL 43 mg/dL (-130); LDL/HDL RATIO 1 RATIO (0-4); TRIGLYCERIDES 86 mg/dL (10-160)
[2017-05-12 07:20] LABS: ANISOCYTOSIS SL; PLATELET ESTIMATE NORMAL (NORMAL)
[2017-05-12 08:33] LABS: ANGIO %MB 2.2 % (0.0-4.0); ANGIO MB 4.6 ng/ml
[2017-05-12] MEDS ORDERED: CLOPIDOGREL75 MG PO (15:14)
[2017-05-12] MEDS ORDERED: NITROGLYGERIN0.4 MG SL (15:22)
== END 2017-05-12 16:09 | disposition home or self-care (01) ==
LOC: CCVL 08:05 → C5C 14:15 → CCVL 14:15 → C5C 14:15 → CCVL 17:15 → C5C 17:15
PROVIDERS: Internal Medicine Cardiovascular Disease
PROC: 027034Z Dilation of Coronary Artery, One Artery with Drug-eluting Intraluminal Device, Percutaneous Approach (ICD-10-PCS; principal; 2017-05-11)
PROC: 4A023N6 Measurement of Cardiac Sampling and Pressure, Right Heart, Percutaneous Approach (ICD-10-PCS; 2017-05-11)
PROC: B211YZZ Fluoroscopy of Multiple Coronary Arteries using Other Contrast (ICD-10-PCS; 2017-05-11)
DX: I25.119 Atherosclerotic heart disease of native coronary artery with unspecified angina pectoris (principal); J96.11 Chronic respiratory failure with hypoxia; I13.0 Hypertensive heart and chronic kidney disease with heart failure and stage 1 through stage 4 chronic kidney disease, or unspecified chronic kidney disease; I50.32 Chronic diastolic (congestive) heart failure; I27.2 Other secondary pulmonary hypertension; N18.3 Chronic kidney disease, stage 3 (moderate); Z99.81 Dependence on supplemental oxygen; J44.9 Chronic obstructive pulmonary disease, unspecified; E78.5 Hyperlipidemia, unspecified; Z79.82 Long term (current) use of aspirin; Z86.73 Personal history of transient ischemic attack (TIA), and cerebral infarction without residual deficits; Z79.899 Other long term (current) drug therapy; Z87.891 Personal history of nicotine dependence; G47.33 Obstructive sleep apnea (adult) (pediatric); E66.9 Obesity, unspecified; Z68.30 Body mass index [BMI] 30.0-30.9, adult
CPT/HCPCS: 93456; C9600; 36415; 80048; 80061; 82550; 82553; 82810; 85025; 85027; 85347; 85610; 85730; 93005; C1725; C1769; C1874; C1887; C1894; G0378; J0461; J1644; J2250; J2270; J2405; J3010

== ENCOUNTER → 2017-05-25 | Outpatient (CLI) | payer MEDICARE ==
[~2017-05-25] MED LIST changes: +ADVAIR 250-501 EAC1 INH; +ALBUTEROL 0.5ML INH; +AMLODIPINE-BEN1 EAC5 PO; +ASPIRIN EC81 M1 PO; +B-COMPLEX 1000.4 MG; +CLOPIDOGREL75 MG PO; +COMBIVENT MININEB; +FERROUS SULFAT325 MG PO; +K-DUR20 ME1 PO; +LASIX PO; +LIPITOR20 MG PO; +NITROGLYGERIN0.4 MG SL; +OXYGEN; +PANTOPRAZOLE SO40 MG PO
[2017-05-25 09:41] LABS: BUN/CREATININE RATIO 22.5; CALCIUM SERUM 8.4 mg/dL (8.4-10.2); CREATININE SERUM 1.6 mg/dL (0.6-1.4); GLOM FILT RATE Estimated 40.1 mL/min (>60)
[2017-05-25 09:51] LABS: POTASSIUM 5.5 mmol/L (3.5-5.1)
== END | disposition home or self-care (01) ==
LOC: CLAB 08:26
PROVIDERS: Internal Medicine Cardiovascular Disease
DX: N28.9 Disorder of kidney and ureter, unspecified (principal)
CPT/HCPCS: 36415; 80048

== ENCOUNTER → 2017-06-03 | Outpatient (CLI) | payer MEDICARE ==
[2017-06-03 10:42] LABS: BUN/CREATININE RATIO 23.07; CALCIUM SERUM 8.9 mg/dL (8.4-10.2); CREATININE SERUM 1.3 mg/dL (0.6-1.4); GLOM FILT RATE Estimated 51.6 mL/min (>60); POTASSIUM 4.5 mmol/L (3.5-5.1)
== END | disposition home or self-care (01) ==
LOC: CLAB 08:56
PROVIDERS: Internal Medicine Cardiovascular Disease
DX: E87.5 Hyperkalemia (principal)
CPT/HCPCS: 36415; 80048